=== PATIENT | female | born 1955 | race Caucasian/White ===

== ENCOUNTER 2017-03-23 06:46 | Observation (INO) | payer BC, OTHER ==
[~2017-03-23] VITALS: Ht 170.2 cm; Wt 91.1 kg
--- NOTE | ~2017-03-23 | EKG ---
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 03/26/17 1156 [id number] [id number] Matthew Palencia MD, [facility] /EPI
--- NOTE | ~2017-03-23 | D ---
[facility] [place] [address] DISCHARGE SUMMARY Name: EVELYN EVERETT Room #: 207-P [facility] Luis Angel Baez#: [id number] Admission: 03/23/17 Attend Phys: Matthew Palencia MD, Discharge: 03/24/17 Date of : 59 Report #: [id number] THIS REPORT FOR: //name// CC: Matthew BOSTON unknown DISCHARGE DIAGNOSES: 1. Progressive, unstable angina with high risk stress study. 2. Limited non-Q wave myocardial infarction. 3. Mild ischemic cardiomyopathy. 4. Coronary artery disease with medicated stenting of the proximal left anterior descending with a 2.75 x 12 mm Resolute stent dilated to 3.1 mm; angioplasty of a first diagonal branch for stent JL through the times of this left anterior descending stent. 5. Hypertension. 6. Dyslipidemia. 7. Tobacco dependency. 8. Hepatitis C. RECOMMENDATIONS: 1. Full year of dual antiplatelet therapy (03/22/2018). 2. Smoking cessation counseling performed. 3. Cardiac rehabilitation. 4. Change from pravastatin to Crestor 40 mg daily. DISCHARGE MEDICATIONS: Reconciled. Aspirin 325 mg daily, lisinopril 10 mg daily, metoprolol 25 mg daily, prasugrel 10 mg daily, fentanyl patch 50 mcg every 48 hours, Crestor 40 mg daily, Nasacort, multivitamin. Discharge arrangements were made for outpatient cardiac rehabilitation. DISCHARGE ACTIVITY: As instructed post-catheterization. DISCHARGE FOLLOWUP: With myself. DISCHARGE DIET: Low fat, low cholesterol, heart healthy. DISCHARGE CONDITION: Stable and improved. <ELECTRONICALLY SIGNED> By: Matthew Palencia MD, FAC 03/28/17 1301 0740 [id number] Matthew Palencia MD, FAC /nt
--- NOTE | ~2017-03-23 | EKG ---
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 : 1955 Requested By: Matthew Palencia Order Number: [id number] MD: Endy Fernandes Measurements Intervals [place] Rate: 71 P: 61 ID: 156 QRS: 1 QRSD: 100 T: -32 QT: 410 QTc: 446 Interpretive Statements Sinus rhythm Borderline low voltage, extremity leads Minimal ST depression, inferior leads Compared to ECG 08/01/2016 07:59:50 ST (T wave) deviation now present T-wave abnormality no longer present Electronically Signed On 03-23-2017 13:35:13 CDT by Endy Fernandes [email or web address] <ELECTRONICALLY SIGNED> By: Endy Fernandes MD 03/23/17 1335 1110 1110 Endy Fernandes MD /EPI
--- NOTE | ~2017-03-23 | CATHLAB ---
[address] [place] [address] INVASIVE PROCEDURE REPORT Name: EVELYN EVERETT Room #: 207-P [facility] IN .R.#: [id number] Admission: 03/23/17 Attend Phys: Matthew Palencia, Discharge: Date of : 59 Date of Service: 03/24/17 0947 Report #: [id number] THIS REPORT FOR: //name// APPROVED REPORT Patient Details Patient Status: Out-Patient Room #: The patient is a 61 year-old female Event Personnel Matthew Palencia Director Of Critical Care, Tanja Schilling RN RN, Amanda Rausch Sandifer, David Monitor Procedures Performed Art Access - R femoral artery* , Left Heart Catheterization Indication Chest pain Previous Procedures/Diagnoses Previous PCI, Previous [place] Procedure Narrative The Right Groin^ was infiltrated with 1% Lidocaine subcutaneous anesthesia. The right femoral accessed via ultrasound guidance. A sheath was inserted into the RFA^. Coronary angiography was performed using coronary diagnostic catheters. The right coronary system was accessed and visualized with a JR4 catheter. The left coronary system was accessed and visualized with a JL4 catheter. The left ventricle was accessed and visualized with a PIGTAIL catheter. Left ventricular/Aortic Valve gradient assessed via catheter pullback. The patient tolerated the procedure well and there were no complications associated with the procedure. [id number] Intraoperative Conscious Sedation Sedation start time: 8:13 Case end Time: 10:01 Fentanyl 200 mcg Versed 4 mg Fluoro Time: 38.00 minutes Dose: DAP 5039 cGycm2 Contrast Type and Amount: Omnipaque 485 ml Hemodynamics [facility] [address] [place] [address] INVASIVE PROCEDURE REPORT Name: EVELYN EVERETT Room #: 207-P [facility] IN ..#: [id number] Admission: 03/23/17 Attend Phys: Matthew Palencia, Discharge: Date of : 59 Date of Service: 03/24/17 0947 Report #: [id number] The aortic pressure is 163/75 mmHg with a mean of 97 mmHg. The left ventricular end diastolic pressure is 17 mmHg. There was no gradient across the aortic valve upon pullback. PCI Technique Lesion Anticoagulation was achieved with Heparin, Integrilin. Patient was preloaded with Effient. Percutaneous coronary intervention was performed on the proximal left anterior descending artery segment. The lesion stenosis prior to intervention was 85% with APOLONIA 3 flow. A LAUNCHER 6FR EBU 3.5 #[id number] Guide Catheter was used to engage the LCA ostium. A Luge Wire .014 x 182CM #[id number] Interventional Guidewire was used to cross the lesion. BALLOON DILATION A Balloon catheter Euphora RX 2.5 x 10 #[id number] was inserted and inflated up to 16.00atm for 21seconds. Additional Inflation: 14.00atm for 35seconds. Additional Inflation: 16.00atm for 30seconds. STENT DEPLOYMENT A drug-eluting stent RESOLUTE OTW 2.75 X 12 #[id number] was inserted and inflated up to 16.00atm for 30seconds. POST STENT DEPLOYMENT BALLOON DILATION A Balloon catheter RESOLUTE OTW 2.75 X 12 #[id number] was inserted and inflated up to 16.00atm for 31seconds. PCI Technique Lesion 2 Percutaneous Coronary Intervention was performed on the lateral first diagnonal branch segment. <ELECTRONICALLY SIGNED> By: Paresh Raya MD 03/24/17946 6 6 Paresh Raya MD /INF
--- NOTE | ~2017-03-23 | CATHLAB ---
[facility] [place] [address] INVASIVE PROCEDURE REPORT Name: EVELYN EVERETT Room #: 207-P [facility] IN ..#: [id number] Admission: 03/23/17 Attend Phys: Matthew Palencia, Discharge: 03/24/17 Date of : 59 Date of Service: 03/23/17 1649 Report #: [id number] THIS REPORT FOR: //name// CC: Matthew BOSTON unknown DATE OF SERVICE: 03/23/2017 PROCEDURE: Left heart coronary angiography, stenting of the proximal LAD, angioplasty of the first diagonal branch. INDICATIONS: Progressive chest pain, high risk stress study. DESCRIPTION OF PROCEDURE: The potential benefits and risks of the procedure were discussed at length with the patient who understood. Full written and informed consent was obtained. The patient was brought into the catheterization suite where her right groin was prepped and draped in a sterile fashion. She was sedated with intravenous Versed, 1% Xylocaine was used as local anesthetic. A 6-Swazi sheath was placed in the right femoral artery by the modified Seldinger technique. Ventriculography was performed in the SKINNER projection. Pullback gradients were measured across the aortic valve. Left heart hemodynamics were obtained. Selective coronary angiography was performed with a 6-Swazi left and right 4 cm Shawna coronary catheter. Attention was turned to a high-grade narrowing within the proximal LAD. The patient was premedicated with aspirin, Effient, heparin and Integrilin. A 6-Swazi JL4 guide catheter was placed over a wire with its tip at the ostium of the left main. A 0.014 inch Luge wire was used to traverse the LAD stenosis, which was then predilated with a 2.5 x 10 mm Euphora balloon in upwards of 16 atmospheres for 30 seconds. This balloon was removed and a 2.75 x 12 mm Resolute was attempted to be placed in the proximal LAD with great difficulty. There appeared to be a ledge that limited placement of the stent. I then elected to replace the Euphora balloon and do several additional inflations. I also placed a marizol wire and yet the Resolute stent would not traverse to the lesion site. The balloon went very easily. Some of this difficulty may have been related to poor guide support with the JL4, which was then changed for an EBU 3.5 launcher guide catheter. A new Luge was placed down the LAD and the lesion was predilated with an NC balloon. Following this dilatation, a 2.75 x 12 mm Resolute stent was positioned in the LAD. Stent position confirmed and then deployed at 16 atmospheres for 30 seconds. There was stent detention on encroachment on the first diagonal branch. The same LAD wire was pulled back and placed into the diagonal vessel, which was then dilated with a 2.25 Euphora balloon. Several long inflations were made at the ostium of this diagonal branch and APOLONIA 3 flow was restored. There was moderate amount of spasm in the mid portion of the diagonal. Several aliquots of intracoronary nitroglycerin were given with restorationism of flow. [address] [address] INVASIVE PROCEDURE REPORT Name: KARLOSCAESAR RICKSCAL ALMODOVAR Room #: 207-P [facility] IN M.R.#: [id number] Admission: 03/23/17 Attend Phys: Matthew DeeAcacia Talha, Discharge: 03/24/17 Date of : 59 Date of Service: 03/23/17 1649 Report #: [id number] SUMMARY LEFT HEART HEMODYNAMICS: 1. Left ventricular systolic pressure 116. 2. Left ventricular end diastolic pressure of 17. 3. Aortic valve, no gradient was pulled back across the aortic valve, central aortic pressure 160/70. ANGIOGRAPHY: LEFT VENTRICULOGRAM: Ventriculography demonstrated normal global and regional left ventricular systolic function. Mitral regurgitation was absent. The ejection fraction was estimated at 65%. SELECTIVE CORONARY ANGIOGRAPHY: 1. LEFT MAIN: Left main exhibited mild plaquing. 2. LEFT ANTERIOR DESCENDING: The LAD exhibited an 85% proximal stenosis. This was just before the origin of a single moderate size diagonal branch. The remaining portion of the LAD was moderate in size and exhibited mild to moderate diffuse plaquing. 3. CIRCUMFLEX: The circumflex was large, but nondominant. The midcircumflex had been previously stented. The stent was widely patent feeding a large single marginal branch. 4. RIGHT CORONARY: The right coronary was dominant and exhibited mild distal 20% to 30% plaquing. POST-ANGIOPLASTY AND STENTING: The proximal LAD was ballooned and then stented with a 2.75 x 12 mm Resolute stent dilated to 3.1 mm with a noncompliant balloon. The stent detention of the first diagonal branch was angioplastied with a 2.25 balloon with several long moderate inflations with restorationism of APOLONIA 3 flow. SUMMARY: 1. Normal global and regional left ventricular systolic function. 2. Mild plaquing of the left main. 3. The proximal LAD exhibited an 85% stenosis successfully stented with a 2.75 x 12 mm Resolute medicated stent postdilated to close to 3.1 mm. There was stent detention of the first diagonal branch with successful angioplasty with a 2.25 mm balloon. 4. The circumflex midvessel stent was widely patent without evidence of restenosis. 5. The right coronary exhibited mild distal plaquing. <ELECTRONICALLY SIGNED> By: Matthew Palencia MD, [facility] 03/28/17 1301 1649 52 Matthew Palencia MD, [facility] /nt
[~2017-03-23 06:46] MED LIST: AMLODIPINE BESY10 MG PO; ASPIRIN325 PO; ATORVASTATIN CA40 MG PO; EFFIENT10 MG PO; FENTANYL PA50 MCG/HR TRANSDERM; LISINOPRIL10 MG PO; PERCOCET 10-321 EACH PO; PRAVACHOL20 MG PO; TOPROL XL25 MG PO; TRIAMCINOLONE A15 GM TP
[2017-03-23 07:03] VITALS: BP 158/95
[2017-03-23] MEDS ORDERED: VITAMIN D33000 UNIT PO (07:39)
[2017-03-23] MEDS ORDERED: CENTRUM SILVER1 EAC4 PO (07:39)
[2017-03-23] MEDS ORDERED: LAMICTAL100 MG PO (07:40)
[2017-03-23] MEDS ORDERED: FENTANYL PA25 MCG/HR TRANSDERM (07:41)
[2017-03-23 13:15] VITALS: BP 148/88
[2017-03-23 16:45] VITALS: BP 145/89
[2017-03-23 20:02] VITALS: BP 145/80
[2017-03-24] VITALS (7 sets, daily range): BP systolic 112–137; BP diastolic 44–69
[2017-03-24 03:03] LABS: HEMATOCRIT 38.6 % (37.0-47.0); HEMOGLOBIN 13.4 gm/dL (12.0-15.0); MCHC 34.6 g/dL (28.0-37.0); MCV 86.6 fL (80.0-100.0); RBC 4.46 mil/uL (4.20-5.00); RDW 13.4 % (10.5-14.5); WBC 12.7 thou/uL (4.0-11.0)
[2017-03-24 03:32] LABS: CALCIUM 8.7 mg/dL (8.5-10.1); CREATININE 0.9 mg/dL (0.6-1.0); POTASSIUM 3.7 mmol/L (3.5-5.1)
== END 2017-03-24 17:09 | disposition home or self-care (01) ==
LOC: CATH 06:46 → 2N 13:24
PROVIDERS: Internal Medicine
DX: I25.119 Atherosclerotic heart disease of native coronary artery with unspecified angina pectoris (principal); I10 Essential (primary) hypertension; E78.5 Hyperlipidemia, unspecified; F17.210 Nicotine dependence, cigarettes, uncomplicated; I25.2 Old myocardial infarction; B19.20 Unspecified viral hepatitis C without hepatic coma; Z95.5 Presence of coronary angioplasty implant and graft

== ENCOUNTER → 2021-04-01 | Outpatient (CLI) | payer BC, OTHER ==
[~2021-04-01] MED LIST changes: +CENTRUM SILVER1 EAC4 PO; +FENTANYL PA25 MCG/HR TRANSDERM; +LAMICTAL100 MG PO; +VITAMIN D33000 UNIT PO
== END ==
LOC: CAT 10:43
PROVIDERS: ATTEND Internal Medicine
DX: R91.1 Solitary pulmonary nodule (principal); Z87.891 Personal history of nicotine dependence

== ENCOUNTER → 2021-04-01 | Outpatient (CLI) | payer BC, OTHER | LOC: SJCVCIMAG 08:26 | PROVIDERS: ATTEND Internal Medicine | DX: R00.0 Tachycardia, unspecified (principal); R06.00 Dyspnea, unspecified; I25.10 Atherosclerotic heart disease of native coronary artery without angina pectoris; I10 Essential (primary) hypertension; I42.9 Cardiomyopathy, unspecified; R79.89 Other specified abnormal findings of blood chemistry; E78.5 Hyperlipidemia, unspecified; F17.200 Nicotine dependence, unspecified, uncomplicated; Z79.899 Other long term (current) drug therapy; Z79.82 Long term (current) use of aspirin; Z98.61 Coronary angioplasty status ==

== ENCOUNTER → 2021-04-10 | Outpatient (CLI) | payer BC, OTHER | LOC: PUL 09:09 | PROVIDERS: ATTEND Internal Medicine | DX: R06.02 Shortness of breath (principal); F17.210 Nicotine dependence, cigarettes, uncomplicated ==

== ENCOUNTER → 2021-09-15 | Outpatient (CLI) | payer BC, OTHER | LOC: CAT 13:04 | PROVIDERS: ATTEND Internal Medicine | DX: Z12.2 Encounter for screening for malignant neoplasm of respiratory organs (principal); Z87.891 Personal history of nicotine dependence; I25.10 Atherosclerotic heart disease of native coronary artery without angina pectoris ==